=== PATIENT | female | born 1995 | race Caucasian/White ===

== ENCOUNTER 2019-08-15 22:28 | Inpatient (IN) | payer OTHER ==
--- NOTE | 2019-08-16 00:13 | PCM.LDHP ---
L&D History of Present Illness - General Date of Service: 08/16/19 Admit Problem/Dx: Patient Status Order with Admit Dx/Problem 08/15/19 22:15 Patient Status [ADT] Routine Admission Diagnosis/Problem Admission Diagnosis/Problem Source of Information: Patient History Limitations: Reports: No Limitations - History of Present Illness Improves with: Reports: None Worsens with: Reports: None Associated Symptoms: Reports: N - Related Data Allergies/Adverse Reactions: Allergies Allergy/AdvReac Type Severity Reaction Status Date / Time amoxicillin Allergy Rash Verified 08/15/19 22:52 Home Medications: Home Meds Vits #93/Iron Fum/FA [ Formula Tablet] 1 each PO DAILY [History] H&P Review of Systems - Review of Systems: Review Of Systems: See Below General: Reports: No Symptoms HEENT: Reports: No Symptoms Pulmonary: Reports: No Symptoms Cardiovascular: Reports: No Symptoms Gastrointestinal: Reports: No Symptoms Genitourinary: Reports: No Symptoms Musculoskeletal: Reports: No Symptoms Skin: Reports: No Symptoms Psychiatric: Reports: No Symptoms Neurological: Reports: No Symptoms Hematologic/Lymphatic: Reports: No Symptoms Immunologic: Reports: No Symptoms L&D Exam - Exam Exam: See Below - Vital Signs Weight: 62.142 kg - OB Specific Contraction Intensity: Mild to Moderate Movement: Active Heart Tones: Present Presentation: Vertex - Adams Score Adams Score Cervix Position: Posterior Adams Score Consistency: Soft Adams Score Effacement: >80% Adams Score Dilation: 1-2 cm Adams Score 's Station: -3 Adams Score Total: 6 - Exam General: Alert, Oriented HEENT: PERRLA, Conjunctiva Clear, EACs Clear, EOMI, Hearing Intact, Mucosa Moist & Lodge, Nares Patent, Normal Nasal Septum, Posterior Pharynx Clear, TMs Clear Neck: Supple, Trachea Midline Lungs: Clear to Auscultation, Normal Respiratory Effort Cardiovascular: Regular Rate, Regular Rhythm GI/Abdominal Exam: Normal Bowel Sounds, Soft, Non-Tender, No Organomegaly, No Distention, No Abnormal Bruit, No Mass, Pelvis Stable Rectal Exam: Normal Exam, Normal Rectal Tone Genitourinary: Normal external exam, Normal bimanual exam, Normal speculum exam Back Exam: Normal Inspection, Full Range of Motion Extremities: Normal Inspection, Normal Range of Motion, Non-Tender, No Pedal Edema, Normal Capillary Refill Skin: Warm, Dry, Intact Neurological: Cranial Nerves Intact, Reflexes Equal Bilateral Psychiatric: Alert, Normal Affect, Normal Mood Problem List Initiated/Reviewed/Updated: Yes Orders Last 24hrs: Active Orders 24 hr Category Date Time Status Patient Status [ADT] Routine ADT 08/15/19 22:15 Active Non Stress Test [RC] PER UNIT ROUTINE Care 08/15/19 22:52 Active Up ad Viktoria [RC] ASDIRECTED Care 08/15/19 22:52 Active Vaginal Exam [RC] Click to Edit Care 08/15/19 22:52 Active Vital Signs [RC] PER UNIT ROUTINE Care 08/15/19 22:52 Active Resuscitation Status Routine Resus Stat 08/15/19 22:52 Ordered Assessment/Plan Comment:: Admit, early labor.
[2019-08-16] MEDS ORDERED: Sodium Chloride 0.9% 2.5 ML Syringe FLUSH PRN (00:45)
[2019-08-16] MEDS ORDERED: Tranexamic Acid 1,000 MG in Sodium Chloride 0.9% 100 ML IV PRN (00:45)
[2019-08-16] MEDS ORDERED: Sodium Chloride 0.9% 10 ML SDV IV PRN (00:45)
[2019-08-16] MEDS ORDERED: Water For Irrigation,Sterile 1,000 ML Container IRR PRN (00:45)
[2019-08-16] MEDS ORDERED: Lidocaine 1% 50 ML MDV INJECT PRN (00:45)
[2019-08-16] MEDS ORDERED: Sodium Chloride 0.9% 10 ML Syringe FLUSH PRN (00:45)
[2019-08-16] MEDS ORDERED: Carboprost Tromethamine 250 MCG/1 ML Amp IM PRN (00:45)
[2019-08-16] MEDS ORDERED: Methylergonovine 0.2 MG/1 ML Amp IM PRN (00:45)
[2019-08-16] MEDS ORDERED: Oxytocin/0.9 % Sodium Chloride 30 UNIT/500 ML BAG IV SCH (00:45)
[2019-08-16] MEDS ORDERED: Nalbuphine 10 MG/1 ML Vial IVPUSH PRN (00:45)
[2019-08-16] MEDS ORDERED: Butorphanol 1 MG/ML SDV IVPUSH PRN (00:45)
[2019-08-16] MEDS ORDERED: Misoprostol 200 MCG Tab PO PRN (00:45)
[2019-08-16] MEDS: Lactated Ringers 1,000 ML IV SCH ×2 (01:58→03:10)
[2019-08-16] MEDS ORDERED: Oxytocin/0.9 % Sodium Chloride 30 UNIT/500 ML BAG ONE (02:22)
--- NOTE | 2019-08-16 02:45 | PCM.PREANE ---
Preanesthetic Assessment - Anesthesia/Transfusion/Family Hx Anesthesia History: Prior Anesthesia Without Reaction Family History of Anesthesia Reaction: No Transfusion History: No Prior Transfusion(s) - Review of Systems General: No Symptoms Pulmonary: No Symptoms Cardiovascular: No Symptoms Gastrointestinal: No Symptoms Neurological: No Symptoms Other: Reports: None - Physical Assessment Height: 5 ft 2 in Weight: 62.142 kg ASA Class: 2 Mental Status: Alert & Oriented x3 Airway Class: Mallampati = 2 Dentition: Reports: Normal Dentition Thyro-Mental Finger Breadths: 3 Mouth Opening Finger Breadths: 3 ROM/Head Extension: Full Lungs: Clear to Auscultation, Normal Respiratory Effort Cardiovascular: Regular Rate, Regular Rhythm - Lab Values: Laboratory Last Values WBC 19.59 K/uL (4.0-11.0) H 08/16/19 01:05 RBC 3.95 M/uL (4.30-5.90) L 08/16/19 01:05 Hgb 10.8 g/dL (12.0-16.0) L 08/16/19 01:05 Hct 31.8 % (36.0-46.0) L 08/16/19 01:05 MCV 80.5 fL (80.0-98.0) 08/16/19 01:05 MCH 27.3 pg (27.0-32.0) 08/16/19 01:05 MCHC 34.0 g/dL (31.0-37.0) 08/16/19 01:05 RDW Std Deviation 37.8 fl (28.0-62.0) 08/16/19 01:05 RDW Coeff of Danial 14 % (11.0-15.0) 08/16/19 01:05 Plt Count 237 K/uL (150-400) 08/16/19 01:05 MPV 10.60 fL (7.40-12.00) 08/16/19 01:05 Blood Type A POSITIVE 08/16/19 01:05 Antibody Screen NEGATIVE 08/16/19 01:05 - Allergies Allergies/Adverse Reactions: Allergies Allergy/AdvReac Type Severity Reaction Status Date / Time amoxicillin Allergy Rash Verified 08/15/19 22:52 - Acknowledgements Anesthesia Type Planned: Epidural Pt an Appropriate Candidate for the Planned Anesthesia: Yes Alternatives and Risks of Anesthesia Discussed w Pt/Guardian: Yes Pt/Guardian Understands and Agrees with Anesthesia Plan: Yes PreAnesthesia Questionnaire - Past Health History Medical/Surgical History: Denies Medical/Surgical History HEENT History: Reports: None Cardiovascular History: Reports: None Respiratory History: Reports: None Gastrointestinal History: Reports: GERD Genitourinary History: Reports: None 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: : 3 Para: 2 LMP (Approximate): Musculoskeletal History: Reports: None Neurological History: Reports: None Psychiatric History: Reports: Anxiety, Depression Endocrine/Metabolic History: Reports: None Hematologic History: Reports: None Immunologic History: Reports: None Oncologic (Cancer) History: Reports: None Dermatologic History: Reports: None - Infectious Disease History Infectious Disease History: Reports: None - HOME MEDS Home Medications: Home Meds Vits #93/Iron Fum/FA [ Formula Tablet] 1 each PO DAILY [History] - CURRENT (IN HOUSE) MEDS Current Meds: Current Medications Butorphanol Tartrate (Stadol) 1 mg IVPUSH Q1H PRN PRN Reason: Pain Carboprost Tromethamine (Hemabate Ds) 250 mcg IM ASDIRECTED PRN PRN Reason: Post Hemorrhage Lactated Ringer's (Ringers, Lactated) 1,000 mls @ 150 mls/hr IV ASDIRECTED [facility] Last Admin: 08/16/19 01:58 Dose: 150 mls/hr Oxytocin/Sodium Chloride (Oxytocin 30 Unit/500 Ml-Ns) 30 unit in 500 mls @ 500 mls/hr IV TITRATE [facility] Tranexamic Acid 1,000 mg/ (Sodium Chloride) 110 mls @ 660 mls/hr IV ONETIME PRN PRN Reason: Bleeding Lidocaine HCl (Xylocaine 1%) 50 ml INJECT ONETIME PRN PRN Reason: Laceration repair Methylergonovine Maleate (Methergine) 0.2 mg IM ASDIRECTED PRN PRN Reason: Post Hemorrhage Misoprostol (Cytotec) 200 mcg PO ONETIME PRN PRN Reason: Post Hemorrhage Nalbuphine HCl (Nubain) 10 mg IVPUSH Q1H PRN PRN Reason: Pain (severe 7-10) Sodium Chloride (Saline Flush) 10 ml FLUSH ASDIRECTED PRN PRN Reason: Keep Vein Open Sodium Chloride (Saline Flush) 2.5 ml FLUSH ASDIRECTED PRN PRN Reason: Keep Vein Open Sodium Chloride (Normal Saline) 10 ml IV ASDIRECTED PRN PRN Reason: IV Use Sterile Water (Sterile Water For Irrigation) 1,000 ml IRR ASDIRECTED PRN PRN Reason: delivery Discontinued Medications Oxytocin/Sodium Chloride (Oxytocin 30 Unit/500 Ml-Ns) Confirm Administered Dose 30 unit in 500 mls @ as directed .ROUTE .[facility] ONE Stop: 08/16/19 02:23
[2019-08-16] MEDS ORDERED: Bupivicaine/fentaNYL/NS 250 ML ONE (02:47)
[2019-08-16] MEDS ORDERED: Docusate Sodium 100 MG Cap PO PRN (06:31)
[2019-08-16] MEDS ORDERED: Lanolin 100% Cream 7 GM Tube TOP PRN (06:31)
[2019-08-16] MEDS ORDERED: Acetaminophen 500 MG Tab PO PRN (06:31)
[2019-08-16] MEDS ORDERED: Ibuprofen 400 MG Tab PO PRN (06:31)
[2019-08-16] MEDS ORDERED: Witch Hazel Medicated Pads 40/Jar TOP PRN (06:31)
[2019-08-16] MEDS ORDERED: oxyCODONE 5 MG Tab PO PRN (06:31)
[2019-08-16] MEDS ORDERED: Benzocaine/Menthol 20%-0.5% Spray 78 GM Cannister TOP PRN (06:31)
[2019-08-16] MEDS ORDERED: Bisacodyl 10 MG Supp RECTAL PRN (06:31)
--- NOTE | 2019-08-16 07:47 | OR ---
SURGEON: Richard Zafar MD DATE OF PROCEDURE: 08/16/2019 Ms. Man is 24 years old. She is para 2-0-0-2. She is 38+ week. She is admitted in early labor. She is followed jointly by myself and the school business manager. The patient's GBS status is negative. She had no uncomplicated care. The patient admitted in early labor at 3 cm and then progressed rather slowly. She had epidural anesthesia for labor analgesia, and then she eventually became complete-complete, and she was able to push and accomplish normal spontaneous vaginal delivery of a female fetus. score reported to be 8 and 9. The weight is not available. Placenta delivered spontaneous, complete, and intact without any problem. There was no need for episiotomy. There was no perineal laceration or labial or any other laceration. Estimated blood loss was 250 to 300 mL. heart rate was category 1 through the entire process of labor. There was no complication in the labor and the delivery process. One nuchal cord was noted at the time of the delivery. DICK / ALEIDA /[id number]
--- NOTE | 2019-08-16 09:08 | PCM.SN ---
- Free Text/Narrative Note: Magda is a 24 yo S/P an uncomplicated 08/16/2019 @ 0624 to a viable and vigorous NBF who is EBFing without issues/problems/concerns. A+/RI/GBS neg. Patient is resting comfortably in bed with to latched to left breast with spouse at bedside. VSS, ROS consistent with normal course. Vaginal bleeding, moderate rubra, no clots. No SOB, HAs, chest pain, edema, or other problems or concerns. Patient still reporting BLE numbness/ tingling due to epidural. Mild uterine cramping alleviated by ibuprofen and rest. Patient has not questions, comments, or concerns at this time. Plan to continue normal plan of care and D/C home tomorrow.
[2019-08-16] MEDS ORDERED: Benzocaine/Cetylpyridinium/Menthol Lozenge MUCMEM PRN (11:08)
[2019-08-16] MEDS: Ibuprofen 800 MG Tab PO PRN ×3 (11:14→23:43)
[2019-08-16] MEDS: Acetaminophen 500 MG Tab PO PRN ×2 (13:20→19:53)
[2019-08-17] MEDS: Acetaminophen 500 MG Tab PO PRN ×2 (02:39→08:57)
[2019-08-17] MEDS: Ibuprofen 800 MG Tab PO PRN ×2 (05:51→11:41)
--- NOTE | 2019-08-17 07:04 | PCM48HPAN ---
Post Anesthesia Note - EVALUATION WITHIN 48HRS OF ANESTHETIC Vital Signs in Normal Range: Yes Patient Participated in Evaluation: Yes Respiratory Function Stable: Yes Airway Patent: Yes Cardiovascular Function Stable: Yes Hydration Status Stable: Yes Pain Control Satisfactory: Yes Nausea and Vomiting Control Satisfactory: Yes Mental Status Recovered: Yes Vital Signs: Last Vital Signs Temp 36.2 C 08/17/19 05:13 Pulse 105 H 08/17/19 05:13 Resp 18 08/17/19 05:13 BP 121/78 08/17/19 05:13 Pulse Ox 97 08/17/19 05:13 - COMMENTS/OBSERVATIONS Free Text/Narrative:: No problems noted post.
--- NOTE | 2019-08-17 08:05 | PCM.DCSUM1 ---
Discharge Summary - Hospital Course Free Text/Narrative:: Discharge home with . Follow up in 6 weeks for visit. Diagnosis: Stroke: No Modified [place] Scale: No Symptoms at All Modified Salma Scale Score: 0 - Discharge Data Discharge Date: 08/17/19 Discharge Disposition: Home, Self-Care 01 Condition: Good - Referral to Home Health Primary Care Physician: PCP None - Patient Instructions Diet: Usual Diet as Tolerated Activity: As Tolerated, No Strenuous Activities, Rest and Relax Today Driving: May Drive Today Showering/Bathing: May Shower Notify Provider of: Fever, Increased Pain, Swelling and Redness, Nausea and/or Vomiting - Discharge Plan *PRESCRIPTION DRUG MONITORING PROGRAM REVIEWED*: Not Applicable *COPY OF PRESCRIPTION DRUG MONITORING REPORT IN PATIENT TWYLA: Not Applicable Home Medications: Home Meds Vits #93/Iron Fum/FA [ Formula Tablet] 1 each PO DAILY [History] Oxygen Therapy Mode: Room Air Referrals: [facility] [Outside] Maty Santos, DOTTIE, HOUSEHOLD REFRIGERATION MECHANIC [Mid-] - 09/27/19 3:00 pm - Discharge Summary/Plan Comment DC Time >30 min.: Yes - General Info Date of Service: 08/17/19 Admission Dx/Problem (Free Text: Patient Status Order with Admit Dx/Problem 08/15/19 22:15 Patient Status [ADT] Routine Admission Diagnosis/Problem Admission Diagnosis/Problem Functional Status: Reports: Pain Controlled, Tolerating Diet, Ambulating, Urinating - Review of Systems General: Reports: No Symptoms HEENT: Reports: No Symptoms Pulmonary: Reports: No Symptoms Cardiovascular: Reports: No Symptoms Gastrointestinal: Reports: No Symptoms Genitourinary: Reports: No Symptoms Musculoskeletal: Reports: No Symptoms Skin: Reports: No Symptoms Neurological: Reports: No Symptoms Psychiatric: Reports: No Symptoms - Patient Data Vitals - Most Recent: Last Vital Signs Temp 36.2 C 08/17/19 05:13 Pulse 105 H 08/17/19 05:13 Resp 18 08/17/19 05:13 BP 121/78 08/17/19 05:13 Pulse Ox 97 08/17/19 05:13 Weight - Most Recent: 78.018 kg Lab Results - Last 24 hrs: Laboratory Results - last 24 hr 08/17/19 Range/Units 06:26 Hgb 9.7 L (12.0-16.0) g/dL Hct 29.6 L (36.0-46.0) % Med Orders - Current: Current Medications Acetaminophen (Tylenol Extra Strength) 500 mg PO Q4H PRN PRN Reason: Pain Acetaminophen (Tylenol Extra Strength) 1,000 mg PO Q4H PRN PRN Reason: Pain Last Admin: 08/17/19 02:39 Dose: 1,000 mg Benzocaine/Menthol (Dermoplast Pain Relief 20%-0.5% [place]) 78 gm TOP ASDIRECTED PRN PRN Reason: Perineal Comfort Measure Last Admin: 08/16/19 10:29 Dose: 78 gm Benzocaine/Menthol (Cepacol Sore Throat) 2 lozenge MUCMEM DAILY PRN PRN Reason: Sore Throat Last Admin: 08/16/19 11:26 Dose: 2 lozenge Bisacodyl (Dulcolax) 10 mg RECTAL ONETIME PRN PRN Reason: Constipation Butorphanol Tartrate (Stadol) 1 mg IVPUSH Q1H PRN PRN Reason: Pain Carboprost Tromethamine (Hemabate Ds) 250 mcg IM ASDIRECTED PRN PRN Reason: Post Hemorrhage Docusate Sodium (Colace) 100 mg PO BID PRN PRN Reason: Constipation Last Admin: 08/16/19 10:30 Dose: 100 mg Emollient Ointment (Lansinoh Hpa) 0 gm TOP ASDIRECTED PRN PRN Reason: Sore Nipples Lactated Ringer's (Ringers, Lactated) 1,000 mls @ 150 mls/hr IV ASDIRECTED [facility] Last Admin: 08/16/19 03:10 Dose: 500 mls/hr Oxytocin/Sodium Chloride (Oxytocin 30 Unit/500 Ml-Ns) 30 unit in 500 mls @ 500 mls/hr IV TITRATE [facility] Last Admin: 08/16/19 06:25 Dose: 500 mls/hr Tranexamic Acid 1,000 mg/ (Sodium Chloride) 110 mls @ 660 mls/hr IV ONETIME PRN PRN Reason: Bleeding Ibuprofen (Motrin) 400 mg PO Q4H PRN PRN Reason: Pain Ibuprofen (Motrin) 800 mg PO Q6H PRN PRN Reason: Pain Last Admin: 08/17/19 05:51 Dose: 800 mg Lidocaine HCl (Xylocaine 1%) 50 ml INJECT ONETIME PRN PRN Reason: Laceration repair Methylergonovine Maleate (Methergine) 0.2 mg IM ASDIRECTED PRN PRN Reason: Post Hemorrhage Misoprostol (Cytotec) 200 mcg PO ONETIME PRN PRN Reason: Post Hemorrhage Nalbuphine HCl (Nubain) 10 mg IVPUSH Q1H PRN PRN Reason: Pain (severe 7-10) Oxycodone HCl (Oxycodone) 5 mg PO Q2H PRN PRN Reason: Pain Sodium Chloride (Saline Flush) 10 ml FLUSH ASDIRECTED PRN PRN Reason: Keep Vein Open Sodium Chloride (Saline Flush) 2.5 ml FLUSH ASDIRECTED PRN PRN Reason: Keep Vein Open Sodium Chloride (Normal Saline) 10 ml IV ASDIRECTED PRN PRN Reason: IV Use Sterile Water (Sterile Water For Irrigation) 1,000 ml IRR ASDIRECTED PRN PRN Reason: delivery Witch Melissa (Tucks) 1 pad TOP ASDIRECTED PRN PRN Reason: comfort care Last Admin: 08/16/19 10:30 Dose: 1 pad Discontinued Medications Oxytocin/Sodium Chloride (Oxytocin 30 Unit/500 Ml-Ns) Confirm Administered Dose 30 unit in 500 mls @ as directed .ROUTE .STK-MED ONE Stop: 08/16/19 02:23 Fentanyl/Bupivacaine HCl (Fentanyl/Bupivacaine/Ns 2 Mcg-0.125% 250 Ml) Confirm Administered Dose 250 mls @ as directed .ROUTE .STK-MED ONE Stop: 08/16/19 02:48 - Exam General: Reports: Alert, Oriented, Cooperative, No Acute Distress Lungs: Reports: Clear to Auscultation, Normal Respiratory Effort Cardiovascular: Reports: Regular Rate, Regular Rhythm GI/Abdominal Exam: Soft, Non-Tender (Female) Exam: Deferred, Vaginal Bleeding Rectal (Female) Exam: Deferred Back Exam: Reports: Normal Inspection, Full Range of Motion Extremities: Normal Inspection, Normal Range of Motion, Non-Tender, No Pedal Edema Skin: Reports: Warm, Dry, Intact Neurological: Reports: No New Focal Deficit, Normal Speech, Normal Tone, Strength Equal Bilateral, Sensation Intact Psy/Mental Status: Reports: Alert, Normal Affect, Normal Mood
== END 2019-08-17 12:13 | disposition home or self-care (01) | DRG 807 ==
LOC: MW.OBCHECK 22:28 → MW.OB 22:30 → OBSVTOIN 08-16 06:24 → MW.OB 08-16 06:24 → MW.OBCHECK 08-16 06:24 → MW.OB 08-16 10:20
PROVIDERS: ADMIT Obstetrics & Gynecology; ATTEND Obstetrics & Gynecology
PROC: 10E0XZZ Delivery of Products of Conception, External Approach (ICD-10-PCS; principal; 2019-08-16)
PROC: 3E0R3BZ Introduction of Anesthetic Agent into Spinal Canal, Percutaneous Approach (ICD-10-PCS; 2019-08-16)
DX: O69.81X0 Labor and delivery complicated by cord around neck, without compression, not applicable or unspecified (principal); Z37.0 Single live birth; Z3A.38 38 weeks gestation of pregnancy
CPT/HCPCS: 01967; 36415; 51702; 59025; 59409; 85014; 85018; 85027; 86592; 86850; 86900; 86901; A9270-GY; J2590; J3010; J7120